=== PATIENT | male | born 1960 | race Hispanic/Latino ===

== ENCOUNTER 2016-07-08 12:43 | Outpatient (CLI) | payer OTHER ==
--- NOTE | 2016-07-09 08:43 | Ultrasound Report ---
ULTRASOUND ABDOMEN LIMITED INDICATION: Fatty liver, increased LFTs. COMPARISON: 07/26/2008 CT. FINDINGS: Right upper quadrant sonography demonstrates diffusely echogenic liver with grossly preserved contours. Poor sonographic penetration without definite focal suspicious lesions or biliary dilatation, to the extent assessed. No gallstones or pericholecystic fluid. Gallbladder wall thickness is 1.8 mm. Common bile duct is 5 mm. Pancreas not well-visualized. Nonaneurysmal abdominal aorta, IVC and the right kidney appear within normal limits. CONCLUSION: Extensive fatty hepatic infiltration again noted without acute sonographic abnormality, as described. Thank you for the opportunity to participate in this patient's care.
== END 2016-07-08 12:44 | disposition home or self-care (01) ==
LOC: US 12:43
PROVIDERS: ATTEND Internal Medicine
DX: K76.0 Fatty (change of) liver, not elsewhere classified (principal); R94.5 Abnormal results of liver function studies
CPT/HCPCS: 76705